=== PATIENT | female | born 1995 | race Two or more races ===

== ENCOUNTER 2020-07-27 09:25 | Outpatient (CLI) | payer OTHER | END 2020-07-27 09:49 | disposition home or self-care (01) | LOC: RX STUDY 09:25 | PROVIDERS: ATTEND Obstetrics & Gynecology | DX: R10.2 Pelvic and perineal pain (principal); N91.2 Amenorrhea, unspecified; N94.0 Mittelschmerz; N94.89 Other specified conditions associated with female genital organs and menstrual cycle ==